=== PATIENT | male | born 1950 | race American Indian/Alaskan Native ===

== ENCOUNTER 2016-09-09 18:19 | Emergency (ER) | payer MEDICARE ==
[2016-09-09 20:38] VITALS: BP 136/84
--- NOTE | 2016-09-09 21:34 | XRay Report ---
FINAL REPORT PROCEDURE: XR TIBIA FIBULA 2V LT TECHNIQUE: LEFT tibia and fibula radiographs, AP and lateral views. CPT 56320 HISTORY: Struck left leg just below knee, send for report COMPARISON: No prior studies are available for comparison. FINDINGS: Fracture (s) and/or Dislocation(s): None . Joint space(s): Normal . Soft tissues: Normal . Bone mineralization: Normal . Foreign bodies: None . IMPRESSION: Normal Examination.
--- NOTE | 2016-09-09 23:48 | Emergency Department Report ---
HPI - General Chief Complaint: Extremity Injury, Lower Time Seen by Provider: 09/09/16 23:33 - HPI HPI: he was a 66-year-old male complaining of left leg pain after accidentally got hit in the leg with a hammer earlier today while he was working in yard. Patient states he was working in his yard earlier today, he was using fell of his head and hit his left anterior ledesma He denies fevers/chills/nausea/vomiting/abdominal pain or any other problems. ED Past Medical Hx - Past Medical History Previous Medical History?: Yes Hx Hypertension: Yes Hx Heart Attack/AMI: Yes Hx Diabetes: Yes Additional medical history: high cholesterol - Surgical History Past Surgical History?: Yes Hx Cholecystectomy: Yes - Social History Smoking Status: Current Every Day Smoker Substance Use Type: None - Medications Home Medications: Home Medications Medication Instructions Recorded Confirmed Last Taken Type Carvedilol [Coreg] 25 mg PO QHS 04/17/13 04/17/13 04/14/13 21:00 History Cholecalciferol (Vitamin D3) 3,000 unit PO QDAY 04/17/13 04/17/13 04/15/13 08: 00 History [Vitamin D3] Fenofibrate Nanocrystallized 145 mg PO QDAY 04/17/13 04/17/13 04/15/13 08:00 History [Tricor] Hydrochlorothiazide [HCTZ] 12.5 mg PO QDAY 04/17/13 04/17/13 04/15/13 08:00 History Losartan [Cozaar] 100 mg PO QDAY 04/17/13 04/17/13 04/15/13 09:00 History Pravastatin (Nf) [Pravachol] 40 mg PO QHS 04/17/13 04/17/13 04/14/13 21:00 History amLODIPine [Norvasc] 5 mg PO QHS 04/17/13 04/17/13 04/14/13 21:00 History cloNIDine [Catapres] 0.2 mg PO QHS 04/17/13 04/17/13 04/14/13 21:00 History methOCARBAMOL [Robaxin TAB] 500 mg PO BID #10 tab 10/06/14 Unknown Rx traMADol [Ultram 50 MG tab] 50 mg PO Q6HR PRN #20 tablet 10/06/14 Unknown Rx Aspirin [Aspirin BABY CHEW TAB] 81 mg PO QDAY #30 tab.chew 01/20/16 Unknown Rx Prasugrel [Effient] 10 mg PO QDAY #30 tablet 01/20/16 Unknown Rx Cyclobenzaprine [Flexeril 10 MG 10 mg PO BID PRN #10 tablet 09/09/16 Unknown Rx TAB] Naproxen [Naprosyn TAB] 500 mg PO BID #30 tablet 09/09/16 Unknown Rx ED Review of Systems ROS: Stated complaint: ACCIDENTLY HIT BONE BELOW KNEE W/HAMMER Other details as noted in HPI Constitutional: denies: chills, fever Eyes: denies: eye pain, eye discharge, vision change ENT: denies: ear pain, throat pain Respiratory: denies: cough, shortness of breath, wheezing Cardiovascular: denies: chest pain, palpitations Endocrine: no symptoms reported Gastrointestinal: denies: abdominal pain, nausea, diarrhea Genitourinary: denies: urgency, dysuria Musculoskeletal: denies: back pain, joint swelling, arthralgia Skin: denies: rash, lesions Neurological: denies: headache, weakness, paresthesias Psychiatric: denies: anxiety, depression Hematological/Lymphatic: denies: easy bleeding, easy bruising Physical Exam - Physical Exam Vital Signs: Vital Signs 09/09/16 20:30 Temperature 98.1 F Pulse Rate 70 Respiratory 18 Rate Blood Pressure 136/84 [Right] O2 Sat by Pulse 100 Oximetry Physical Exam: GENERAL: Alert and oriented x3, no apparent distress, Normal Gait, atraumatic. HEAD: Head is normocephalic and a-traumatic. EYES: Extra ocular muscles are intact. Pupils are equal, round, and reactive to light and accommodation. LUNGS: Symetrical with respiration, No wheezing, no rales or crackles, CTAB. HEART: S1, S2 present, regular rate and rhythm without murmur, no rubs, no gallops. EXTREMITIES/MUSCULOSKELETAL: No cyanosis, clubbing, rash, lesions or edema. Full ROM bilaterally. UE/LE Pulses 2+ bilaterally. LE and UE 5+ strength bilaterally mild tenderness to palpation of the anterior ledesma of the left leg. Mild contusion visible PSYCHIATRIC: Mood is congruent with affect, denies suicidal or homicidal ideations. SKIN: Warm and dry, No lesions, No ulceration or induration present. ED Course Vital Signs 09/09/16 20:30 Temperature 98.1 F Pulse Rate 70 Respiratory 18 Rate Blood Pressure 136/84 [Right] O2 Sat by Pulse 100 Oximetry ED Medical Decision Making - Medical Decision Making 66-year-old male presents with leg contusion ED course: Tibia-fibula x-ray ordered. X-ray shows no fracture or dislocation Discussed findings with patient. Discussed the patient to follow up with primary care physician and take medication as prescribed Vital signs are normal patient is in no acute or respiratory distress. Critical care attestation.: If time is entered above; I have spent that time in minutes in the direct care of this critically ill patient, excluding procedure time. ED Disposition Clinical Impression: Contusion of leg, left Qualifiers: Encounter type: initial encounter Qualified Code(s): S80.12XA - Contusion of left lower leg, initial encounter Disposition: DISCHARGED TO HOME OR SELFCARE Is pt being admited?: No Does the pt Need Aspirin: No Condition: Stable Instructions: Contusion in Adults (ED) Prescriptions: Cyclobenzaprine [Flexeril 10 MG TAB] 10 mg PO BID PRN #10 tablet PRN Reason: Muscle Spasm Naproxen [Naprosyn TAB] 500 mg PO BID #30 tablet Referrals: PRIMARY CARE, [Primary Care Provider] - 3-5 Days Forms: Work/School Release Form Time of Disposition: 23:54
== END 2016-09-10 00:12 | disposition home or self-care (01) ==
LOC: ED 18:19
DX: S80.12XA Contusion of left lower leg, initial encounter (principal); I10 Essential (primary) hypertension; I25.2 Old myocardial infarction; E11.9 Type 2 diabetes mellitus without complications; E78.00 Pure hypercholesterolemia, unspecified; F17.200 Nicotine dependence, unspecified, uncomplicated; Z79.82 Long term (current) use of aspirin; W22.8XXA Striking against or struck by other objects, initial encounter; Y93.89 Activity, other specified; Y99.8 Other external cause status; Y92.096 Garden or yard of other non-institutional residence as the place of occurrence of the external cause
CPT/HCPCS: 99283

== ENCOUNTER 2017-05-12 23:55 | Inpatient (IN) | payer MEDICARE ==
[2017-05-13] MEDS ORDERED: BENADRYL IV ONE ×2 (00:13→01:46)
[2017-05-13] MEDS ORDERED: PEPCID IV ONE (00:14)
--- NOTE | 2017-05-13 00:18 | Emergency Department Report ---
ED Allergic Reaction HPI - General Stated complaint: ALLERGIC REACTION Time Seen by Provider: 05/13/17 00:09 - History of Present Illness Initial Comments: Patient is on arB dizziness or allergies was getting in the something not sure if it was after shave presents with urticaria and angioedema to the face and the lips MD Complaint: allergic reaction, hives, facial swelling -: Gradual Symptoms: rash, facial swelling, lip swelling. denies: difficulty swallowing, difficulty breathing, nausea, vomiting, abdominal pain Severity: mild, moderate Treatment Prior to Arrival: none Previous Allergy History: angioedema - Related Data Home Medications Medication Instructions Recorded Confirmed Last Taken Carvedilol [Coreg] 25 mg PO QHS 04/17/13 04/17/13 04/14/13 21:00 Cholecalciferol (Vitamin D3) 3,000 unit PO QDAY 04/17/13 04/17/13 04/15/13 08:00 [Vitamin D3 3,000 unit] Fenofibrate Nanocrystallized 145 mg PO QDAY 04/17/13 04/17/13 04/15/13 08:00 [Tricor] Hydrochlorothiazide [HCTZ] 12.5 mg PO QDAY 04/17/13 04/17/13 04/15/13 08:00 Losartan [Cozaar] 100 mg PO QDAY 04/17/13 04/17/13 04/15/13 09:00 Pravastatin [Pravachol] 40 mg PO QHS 04/17/13 04/17/13 04/14/13 21:00 amLODIPine [Norvasc] 5 mg PO QHS 04/17/13 04/17/13 04/14/13 21:00 cloNIDine [Catapres] 0.2 mg PO QHS 04/17/13 04/17/13 04/14/13 21:00 Previous Rx's Medication Instructions Recorded Last Taken Type methOCARBAMOL [Robaxin TAB] 500 mg PO BID #10 tab 10/06/14 Unknown Rx traMADol [Ultram 50 MG tab] 50 mg PO Q6HR PRN #20 tablet 10/06/14 Unknown Rx Aspirin [Aspirin BABY CHEW TAB] 81 mg PO QDAY #30 tab.chew 01/20/16 Unknown Rx Prasugrel [Effient] 10 mg PO QDAY #30 tablet 01/20/16 Unknown Rx Cyclobenzaprine [Flexeril 10 MG 10 mg PO BID PRN #10 tablet 09/09/16 Unknown Rx TAB] Naproxen [Naprosyn TAB] 500 mg PO BID #30 tablet 09/09/16 Unknown Rx Allergies Allergy/AdvReac Type Severity Reaction Status Date / Time peanut Allergy Hives Verified 04/17/13 10:58 tomato [Tomato] Allergy Hives Verified 04/17/13 10:58 iv contrast dye Allergy Swelling Uncoded 01/16/16 09:36 ED Review of Systems ROS: Stated complaint: ALLERGIC REACTION Other details as noted in HPI Comment: All other systems reviewed and negative Constitutional: denies: diaphoresis, fever, malaise, weakness ENT: denies: dental pain, hearing loss, epistaxis, congestion Respiratory: denies: shortness of breath, SOB with exertion, wheezing Cardiovascular: denies: chest pain, palpitations, dyspnea on exertion, orthopnea , edema, syncope, paroxysmal nocturnal dyspnea Gastrointestinal: denies: nausea, vomiting, diarrhea, constipation, hematemesis , hematochezia Skin: pruritus Neurological: denies: numbness, paresthesias, confusion, abnormal gait, vertigo ED Past Medical Hx - Past Medical History Hx Hypertension: Yes Hx Heart Attack/AMI: Yes Hx Diabetes: Yes Additional medical history: high cholesterol - Surgical History Hx Cholecystectomy: Yes - Social History Smoking Status: Current Every Day Smoker Substance Use Type: None - Medications Home Medications: Home Medications Medication Instructions Recorded Confirmed Last Taken Type Carvedilol [Coreg] 25 mg PO QHS 04/17/13 04/17/13 04/14/13 21:00 History Cholecalciferol (Vitamin D3) 3,000 unit PO QDAY 04/17/13 04/17/13 04/15/13 08: 00 History [Vitamin D3 3,000 unit] Fenofibrate Nanocrystallized 145 mg PO QDAY 04/17/13 04/17/13 04/15/13 08:00 History [Tricor] Hydrochlorothiazide [HCTZ] 12.5 mg PO QDAY 04/17/13 04/17/13 04/15/13 08:00 History Losartan [Cozaar] 100 mg PO QDAY 04/17/13 04/17/13 04/15/13 09:00 History Pravastatin [Pravachol] 40 mg PO QHS 04/17/13 04/17/13 04/14/13 21:00 History amLODIPine [Norvasc] 5 mg PO QHS 04/17/13 04/17/13 04/14/13 21:00 History cloNIDine [Catapres] 0.2 mg PO QHS 04/17/13 04/17/13 04/14/13 21:00 History methOCARBAMOL [Robaxin TAB] 500 mg PO BID #10 tab 10/06/14 Unknown Rx traMADol [Ultram 50 MG tab] 50 mg PO Q6HR PRN #20 tablet 10/06/14 Unknown Rx Aspirin [Aspirin BABY CHEW TAB] 81 mg PO QDAY #30 tab.chew 01/20/16 Unknown Rx Prasugrel [Effient] 10 mg PO QDAY #30 tablet 01/20/16 Unknown Rx Cyclobenzaprine [Flexeril 10 MG 10 mg PO BID PRN #10 tablet 09/09/16 Unknown Rx TAB] Naproxen [Naprosyn TAB] 500 mg PO BID #30 tablet 09/09/16 Unknown Rx ED Physical Exam - General General appearance: alert, anxious - Head Head exam: Absent: atraumatic, normocephalic - Eye Eye exam: Present: PERRL, EOMI - ENT ENT exam: Present: other (angioedema to the lips) - Neck Neck exam: Present: normal inspection. Absent: tenderness, meningismus, lymphadenopathy - Respiratory Respiratory exam: Present: rhonchi. Absent: respiratory distress, wheezes, rales, stridor, accessory muscle use, decreased breath sounds, prolonged expiratory - Cardiovascular Cardiovascular Exam: Present: regular rate, normal rhythm - GI/Abdominal GI/Abdominal exam: Present: soft. Absent: distended, tenderness, guarding, rebound, mass, bruit, pulsatile mass - Extremities Exam Extremities exam: Present: normal capillary refill. Absent: tenderness, pedal edema, joint swelling, calf tenderness - Back Exam Back exam: Present: normal inspection, rash noted. Absent: CVA tenderness (L), muscle spasm, paraspinal tenderness, vertebral tenderness - Neurological Exam Neurological exam: Present: alert, oriented X3, CN II-XII intact. Absent: motor sensory deficit - Skin Skin exam: Present: urticaria ED Course Vital Signs 05/13/17 00:32 Temperature 100.5 F H Pulse Rate 96 H Blood Pressure 146/81 O2 Sat by Pulse 96 Oximetry - Reevaluation(s) Reevaluation #1: 01/12/18 02:13 Patient was given IV fluids antihistamines and steroids had no stridor or drooling no signs of airway problems except lip angioedema ED Medical Decision Making - Lab Data Result diagrams: 05/13/17 00:35 05/13/17 00:35 - Medical Decision Making Patient will need admission given the fact that he is on ARB with angioedema with persistent symptoms of itch as well as rash tongue tightness with lip swelling and facial swelling case d/w dr messina weed control inspector for [facility] for admit Critical care attestation.: If time is entered above; I have spent that time in minutes in the direct care of this critically ill patient, excluding procedure time. ED Disposition Clinical Impression: Angioedema, Allergic reaction Disposition: OP ADMIT IP TO THIS HOSP Is pt being admited?: Yes Condition: Stable Referrals: JONE WEBER MD [Primary Care Provider] - 3-5 Days Time of Disposition: 02:15
[2017-05-13] MEDS ORDERED: NACL 0.9% 500 ML 500 ML IV ONE (00:19)
[2017-05-13] MEDS ORDERED: NACL 0.9% 1000 ML 1,000 ML ONE (00:58)
--- NOTE | 2017-05-13 01:17 | XRay Report ---
FINAL REPORT EXAM: XR CHEST 1V AP HISTORY: Allergic Reaction COMPARISON: None available. FINDINGS: Frontal view(s) of the chest obtained. Cardiac silhouette within normal limits. No gross consolidation or effusion. No pneumothorax. IMPRESSION: No grossly acute findings.
[2017-05-13 01:18] LABS: Basophils % (Auto) 0.2 % (0.0-1.8); Eosinophils % (Auto) 0.1 % (0.0-4.3); Hematocrit 44.5 % (35.5-45.6); Hemoglobin 15.1 gm/dl (11.8-15.2); Lymphocytes # (Auto) 1.3 K/mm3 (1.2-5.4); Lymphocytes % (Auto) 12.8 % (13.4-35.0); Mean Corpuscular HGB Conc 34 % (32-34); Mean Corpuscular Hemoglobin 29 pg (28-32); Mean Corpuscular Volume 85 fl (84-94); Monocytes # (Auto) 0.5 K/mm3 (0.0-0.8); Monocytes % (Auto) 5.2 % (0.0-7.3); Platelet Count 133 K/mm3 (140-440); Red Blood Count 5.26 M/mm3 (3.65-5.03); Red Cell Distribution Width 16.5 % (13.2-15.2)
[2017-05-13 01:34] LABS: Alanine Aminotransferase 15 units/L (7-56); Albumin 3.3 g/dL (3.9-5); BUN/Creatinine Ratio 9; Blood Urea Nitrogen 11 mg/dL (9-20); Calcium 8.7 mg/dL (8.4-10.2); Hemolysis Index 6
[2017-05-13] MEDS ORDERED: TYLENOL PO PRN (03:14)
[2017-05-13] MEDS ORDERED: MILK OF MAGNESIA PO PRN (03:14)
[2017-05-13] MEDS ORDERED: ZOFRAN IV PRN (03:14)
[2017-05-13] MEDS ORDERED: DULCOLAX PR PRN (03:14)
[2017-05-13] MEDS ORDERED: BENADRYL IV SCH (04:00)
--- NOTE | 2017-05-13 04:15 | History and Physical Report ---
History of Present Illness Date of examination: 05/13/17 Date of admission: 05/13/17 03:14 History of present illness: 70-year-old man with a history of hypertension, coronary artery disease, hyperlipidemia, diabetes continue emergency room with complaints of swelling of his eyes. Patient stated he applied a shaving lotion to his face and was getting ready to shave, he broke out in hives and his eyes became swollen shut. He could not see coming to the emergency room for evaluation. Patient was given steroids, Benadryl, eyes are beginning to open Review Of Systems: Constitutional: no weight loss Ears, eyes, nose, mouth and throat: no nasal congestion, no nasal discharge, no sinus pressure, blurry vision, diplopia Neck: No neck pain or rigidity. Cardiovascular: No chest pain, palpitations Respiratory: No shortness of breath, cough Gastrointestinal: No abdominal pain, hematochezia Genitourinary : no dysuria, frequency , hematuria Musculoskeletal: no muscle ache Integumentary: no rash, no pruritis Neurological: no parathesias, focal weakness Endocrine: no cold or heat intolerance, no polyuria or polydipsia Hematologic/Lymphatic: no easy bruising, no easy bleeding, no gland swelling Allergic/Immunologic: no urticaria, no angioedema. PAST MEDICAL HISTORY:hypertension, coronary artery disease, hyperlipidemia, diabetes PAST SURGICAL HISTORY: None FAMILY HISTORY: Hypertension SOCIAL HISTORY: Denies tobacco, alcohol, drug Medications and Allergies Allergies Allergy/AdvReac Type Severity Reaction Status Date / Time peanut Allergy Hives Verified 04/17/13 10:58 tomato [Tomato] Allergy Hives Verified 04/17/13 10:58 iv contrast dye Allergy Swelling Uncoded 01/16/16 09:36 Home Medications Medication Instructions Recorded Confirmed Last Taken Type Carvedilol [Coreg] 25 mg PO QHS 04/17/13 04/17/13 04/14/13 21:00 History Cholecalciferol (Vitamin D3) 3,000 unit PO QDAY 04/17/13 04/17/13 04/15/13 08: 00 History [Vitamin D3 3,000 unit] Fenofibrate Nanocrystallized 145 mg PO QDAY 04/17/13 04/17/13 04/15/13 08:00 History [Tricor] Hydrochlorothiazide [HCTZ] 12.5 mg PO QDAY 04/17/13 04/17/1313 08:00 History Losartan [Cozaar] 100 mg PO QDAY 04/17/13 04/17/13 04/15/13 09:00 History Pravastatin [Pravachol] 40 mg PO QHS 04/17/13 04/17/13 04/14/13 21:00 History amLODIPine [Norvasc] 5 mg PO QHS 04/17/13 04/17/13 04/14/13 21:00 History cloNIDine [Catapres] 0.2 mg PO QHS 04/17/13 04/17/13 04/14/13 21:00 History methOCARBAMOL [Robaxin TAB] 500 mg PO BID #10 tab 10/06/14 Unknown Rx traMADol [Ultram 50 MG tab] 50 mg PO Q6HR PRN #20 tablet 10/06/14 Unknown Rx Aspirin [Aspirin BABY CHEW TAB] 81 mg PO QDAY #30 tab.chew 01/20/16 Unknown Rx Prasugrel [Effient] 10 mg PO QDAY #30 tablet 01/20/16 Unknown Rx Cyclobenzaprine [Flexeril 10 MG 10 mg PO BID PRN #10 tablet 09/09/16 Unknown Rx TAB] Naproxen [Naprosyn TAB] 500 mg PO BID #30 tablet 09/09/16 Unknown Rx Active Meds: Active Medications Acetaminophen (Tylenol) 650 mg PO Q4H PRN PRN Reason: Pain MILD(1-3)/Fever >100.5/[place] Bisacodyl (Dulcolax) 10 mg ID QDAY PRN PRN Reason: Constipation unrelieved by MOM Diphenhydramine HCl (Benadryl) 25 mg IV Q6H GABRIELLE Enoxaparin Sodium (Lovenox) 40 mg SUB-Q QDAY GABRIELLE Levofloxacin/Dextrose (Levaquin 500mg/100ml) 500 mg in 100 mls @ 100 mls/hr IV Q24HR GABRIELLE PRN Reason: Protocol Magnesium Hydroxide (Milk Of Magnesia) 30 ml PO Q4H PRN PRN Reason: Constipation Methylprednisolone Sodium Succinate (Solu-Medrol) 125 mg IV Q6H GABRIELLE Ondansetron HCl (Zofran) 4 mg IV Q8H PRN PRN Reason: N/V unrelieved by Reglan Exam - Physical Exam Narrative exam: Gen. appearance: Patient lying in bed in no acute distress HEENT: Normocephalic/atraumatic, eye lids swollen, pupils equal round reactive to light, extra occular movement intact, no scleral icterus, no JVD or thyromegaly or nodule, neck is supple, mucous membrane moist, no erythema or exudate Heart: S1-S2, regular rate and rhythm Lungs: Clear to auscultation bilateral breathing comfortable Abdomen: Positive bowel sounds, nontender, nondistended, no organomegaly Extremities: No edema, cyanosis, clubbing Neuro:: Oriented 3 , cranial nerves II-12 intact, speech, motor intact Skin: No rash, nodules, warm dry - Constitutional Vitals: Temp Pulse Resp BP Pulse Ox 100.5 F H 96 H 20 146/81 98 05/13/17 00:32 05/13/17 00:32 05/13/17 03:12 05/13/17 00:32 05/13/17 03:12 Results - Labs CBC & Chem 7: 05/13/17 00:35 05/13/17 00:35 Labs: Abnormal lab results 05/13/17 05/13/17 Range/Units 00:35 00:35 RBC 5.26 H (3.65-5.03) M/mm3 RDW 16.5 H (13.2-15.2) % Plt Count 133 L (140-440) K/mm3 Lymph % (Auto) 12.8 L (13.4-35.0) % Seg Neutrophils % 81.7 H (40.0-70.0) % Seg Neutrophils # 8.0 H (1.8-7.7) K/mm3 Potassium 3.4 L (3.6-5.0) mmol/L Glucose 178 H (75-100) mg/dL Albumin 3.3 L (3.9-5) g/dL - Imaging and Cardiology Chest x-ray: report reviewed Assessment and Plan Assessment Acute allergic reaction secondary to shaving lotion Hypertension Diabetes Coronary artery disease Thrombocytopenia Plan Admit to medicine Start high-dose IV steroids, Benadryl, Pepcid Continue her present outpatient medications DVT prophylaxis
[2017-05-13] MEDS ORDERED: D50W (25GM) Syringe IV PRN (04:18)
[2017-05-13] MEDS ORDERED: LEVAQUIN 500MG/100ML 500 MG/100 ML BAG IV ONE (04:53)
[2017-05-13] MEDS ORDERED: BENADRYL ONE (04:54)
[2017-05-13] MEDS: LEVAQUIN 500MG/100ML 500 MG/100 ML BAG IV SCH ×2 (05:09→09:53)
[2017-05-13 05:32] LABS: Bilirubin,Urine NEG (Negative); Blood,Urine MOD (Negative); Color,Urine Yellow (Yellow); Mucus,Urine FEW /HPF; Nitrite,Urine NEG (Negative); Protein,Urine <15 mg/dL mg/dL (Negative); Urobilinogen,Urine < 2.0 mg/dL (<2.0)
[2017-05-13] MEDS: NOVOLOG SUB-Q SCH ×4 (09:51→23:26)
[2017-05-13] MEDS ORDERED: LOVENOX SUB-Q SCH (10:00)
[2017-05-13] MEDS: HCTZ PO SCH (10:06)
[2017-05-13] MEDS: PEPCID IV SCH ×2 (10:06→23:26)
[2017-05-13] MEDS: TRICOR PO SCH (10:06)
[2017-05-13] MEDS: BABY ASPIRIN PO SCH (10:06)
[2017-05-13] MEDS: VITAMIN D3 PO SCH (10:06)
[2017-05-13] MEDS: BENADRYL IV SCH ×3 (12:51→23:26)
--- NOTE | 2017-05-13 14:39 | Progress Note ---
Assessment and Plan Assessment and plan: 70-year-old man with a history of hypertension, coronary artery disease, hyperlipidemia, diabetes continue emergency room with complaints of swelling of his eyes. Patient stated he applied a shaving lotion to his face and was getting ready to shave, he broke out in hives and his eyes became swollen shut. He could not see coming to the emergency room for evaluation. Patient was given steroids, Benadryl, eyes are beginning to open Acute allergic reaction secondary to shaving lotion Hypertension Diabetes Coronary artery disease Thrombocytopenia Plan Admit to medicine Start high-dose IV steroids, Benadryl, Pepcid Continue her present outpatient medications DVT prophylaxis Hospitalist Physical - Constitutional Vitals: Temp Pulse Resp BP Pulse Ox 98.7 F 66 19 137/64 92 05/13/17 07:21 05/13/17 07:21 05/13/17 07:21 05/13/17 07:21 05/13/17 07:21 Results - Labs CBC & Chem 7: 05/13/17 00:35 05/13/17 00:35 Labs: Laboratory Last Values WBC 9.8 K/mm3 (4.5-11.0) 05/13/17 00:35 RBC 5.26 M/mm3 (3.65-5.03) H 05/13/17 00:35 Hgb 15.1 gm/dl (11.8-15.2) 05/13/17 00:35 Hct 44.5 % (35.5-45.6) 05/13/17 00:35 MCV 85 fl (84-94) 05/13/17 00:35 MCH 29 pg (28-32) 05/13/17 00:35 MCHC 34 % (32-34) 05/13/17 00:35 RDW 16.5 % (13.2-15.2) H 05/13/17 00:35 Plt Count 133 K/mm3 (140-440) L 05/13/17 00:35 Lymph % (Auto) 12.8 % (13.4-35.0) L 05/13/17 00:35 [place] % (Auto) 5.2 % (0.0-7.3) 05/13/17 00:35 Eos % (Auto) 0.1 % (0.0-4.3) 05/13/17 00:35 Baso % (Auto) 0.2 % (0.0-1.8) 05/13/17 00:35 Lymph # 1.3 K/mm3 (1.2-5.4) 05/13/17 00:35 [place] # 0.5 K/mm3 (0.0-0.8) 05/13/17 00:35 Eos # 0.0 K/mm3 (0.0-0.4) 05/13/17 00:35 Baso # 0.0 K/mm3 (0.0-0.1) 05/13/17 00:35 Seg Neutrophils % 81.7 % (40.0-70.0) H 05/13/17 00:35 Seg Neutrophils # 8.0 K/mm3 (1.8-7.7) H 05/13/17 00:35 Sodium 138 mmol/L (137-145) 05/13/17 00:35 Potassium 3.4 mmol/L (3.6-5.0) L 05/13/17 00:35 Chloride 98.3 mmol/L (98-107) 05/13/17 00:35 Carbon Dioxide 22 mmol/L (22-30) 05/13/17 00:35 Anion Gap 21 mmol/L 05/13/17 00:35 BUN 11 mg/dL (9-20) 05/13/17 00:35 Creatinine 1.2 mg/dL (0.8-1.5) 05/13/17 00:35 Estimated GFR > 60 ml/min 05/13/17 00:35 BUN/Creatinine Ratio 9 % 05/13/17 00:35 Glucose 178 mg/dL (75-100) H 05/13/17 00:35 POC Glucose 295 (70-105) H 05/13/17 11:31 Calcium 8.7 mg/dL (8.4-10.2) 05/13/17 00:35 Total Bilirubin 0.60 mg/dL (0.1-1.2) 05/13/17 00:35 AST 18 units/L (5-40) 05/13/17 00:35 ALT 15 units/L (7-56) 05/13/17 00:35 Alkaline Phosphatase 48 units/L (35-129) 05/13/17 00:35 Total Protein 6.5 g/dL (6.3-8.2) 05/13/17 00:35 Albumin 3.3 g/dL (3.9-5) L 05/13/17 00:35 Albumin/Globulin Ratio 1.0 % 05/13/17 00:35 Urine Color Yellow (Yellow) 05/13/17 05:13 Urine Turbidity Clear (Clear) 05/13/17 05:13 Urine pH 5.0 (5.0-7.0) 05/13/17 05:13 Ur Specific [place] 1.010 (1.003-1.030) 05/13/17 05:13 Urine Protein <15 mg/dl mg/dL (Negative) 05/13/17 05:13 Urine Glucose (UA) Neg mg/dL (Negative) 05/13/17 05:13 Urine Ketones Neg mg/dL (Negative) 05/13/17 05:13 Urine Blood Mod (Negative) 05/13/17 05:13 Urine Nitrite Neg (Negative) 05/13/17 05:13 Urine Bilirubin Neg (Negative) 05/13/17 05:13 Urine Urobilinogen < 2.0 mg/dL (<2.0) 05/13/17 05:13 Ur Leukocyte Esterase Tr (Negative) 05/13/17 05:13 Urine WBC (Auto) 2.0 /HPF (0.0-6.0) 05/13/17 05:13 Urine RBC (Auto) 1.0 /HPF (0.0-6.0) 05/13/17 05:13 Urine Mucus Few /HPF 05/13/17 05:13
[2017-05-13] MEDS: EFFIENT PO SCH (15:58)
[2017-05-13] MEDS ORDERED: CATAPRES PO SCH (22:00)
[2017-05-13] MEDS ORDERED: NORVASC PO SCH (22:00)
[2017-05-13] MEDS ORDERED: COREG PO SCH (22:00)
[2017-05-13] MEDS ORDERED: PRAVACHOL PO SCH (22:00)
[2017-05-14] MEDS: BENADRYL IV SCH ×2 (06:46→13:06)
[2017-05-14 07:25] LABS: Basophils % (Auto) 0.1 % (0.0-1.8); Hematocrit 43.3 % (35.5-45.6); Hemoglobin 14.5 gm/dl (11.8-15.2); Lymphocytes # (Auto) 1.1 K/mm3 (1.2-5.4); Lymphocytes % (Auto) 6.8 % (13.4-35.0); Mean Corpuscular HGB Conc 34 % (32-34); Mean Corpuscular Hemoglobin 29 pg (28-32); Mean Corpuscular Volume 85 fl (84-94); Monocytes # (Auto) 0.5 K/mm3 (0.0-0.8); Monocytes % (Auto) 3.1 % (0.0-7.3); Platelet Count 125 K/mm3 (140-440); Red Blood Count 5.07 M/mm3 (3.65-5.03); Red Cell Distribution Width 16.4 % (13.2-15.2)
[2017-05-14] MEDS: NOVOLOG SUB-Q SCH ×2 (07:30→13:06)
[2017-05-14 07:33] LABS: BUN/Creatinine Ratio 17; Blood Urea Nitrogen 19 mg/dL (9-20); Calcium 9.1 mg/dL (8.4-10.2); Hemolysis Index 4
[2017-05-14 09:54] VITALS: BP 104/52
[2017-05-14] MEDS: LEVAQUIN 500MG/100ML 500 MG/100 ML BAG IV SCH (10:25)
[2017-05-14] MEDS: EFFIENT PO SCH (10:28)
[2017-05-14] MEDS: VITAMIN D3 PO SCH (10:28)
[2017-05-14] MEDS: HCTZ PO SCH (10:29)
[2017-05-14] MEDS: PEPCID IV SCH (10:29)
[2017-05-14] MEDS: BABY ASPIRIN PO SCH (10:29)
[2017-05-14] MEDS: TRICOR PO SCH (10:29)
--- NOTE | 2017-05-14 12:46 | Discharge Summary ---
Providers - Providers Date of Admission: 05/13/17 03:14 Attending physician: KARTHIKEYAN ZARCO MD Primary care physician: JONE WEBER MD Hospitalization Condition: Stable Hospital course: 70-year-old man with a history of hypertension, coronary artery disease, hyperlipidemia, diabetes continue emergency room with complaints of swelling of his eyes. Patient stated he applied a shaving lotion to his face and was getting ready to shave, he broke out in hives and his eyes became swollen shut. The patient relates having similar symptoms in the past. States that he has allergies to tomatoes peanuts and many other foods and also her contact allergies. He receives steroids, atraumatic hal, H2 hal after which he clinically improved. He was advised to go back and read the ingredients of the shaving cream and to never use it again. Discharge diagnoses Acute allergic reaction secondary to contact allergies to shaving lotion Hypertension Diabetes Coronary artery disease Thrombocytopenia Disposition: DC- TO HOME OR SELFCARE Time spent for discharge: 33 minutes Core Measure Documentation - Palliative Care Palliative Care/ Comfort Measures: Not Applicable - Core Measures Any of the following diagnoses?: none Exam - Constitutional Vitals: Temp Pulse Resp BP Pulse Ox 98.2 F 58 L 18 104/52 95 05/14/17 08:36 05/14/17 08:36 05/14/17 08:36 05/14/17 08:36 05/14/17 08:36 General appearance: Present: no acute distress, well-nourished - EENT Eyes: Present: PERRL ENT: hearing intact, clear oral mucosa - Neck Neck: Present: supple, normal ROM - Respiratory Respiratory effort: normal Respiratory: bilateral: CTA - Cardiovascular Heart Sounds: Present: S1 & S2. Absent: rub, click - Extremities Extremities: pulses symmetrical, No edema Peripheral Pulses: within normal limits - Abdominal General gastrointestinal: Present: soft, non-tender, non-distended, normal bowel sounds Male genitourinary: Present: normal - Integumentary Integumentary: Present: clear, warm, dry - Musculoskeletal Musculoskeletal: gait normal, strength equal bilaterally - Psychiatric Psychiatric: appropriate mood/affect, intact judgment & insight - Neurologic Neurologic: CNII-XII intact, moves all extremities Plan Follow up with: JONE WEBER MD [Primary Care Provider] - 3-5 Days Prescriptions: amLODIPine [Norvasc] 5 mg PO QHS #30 tablet Carvedilol [Coreg] 25 mg PO QHS #30 tablet cloNIDine [Catapres] 0.2 mg PO QHS #30 tablet Pravastatin [Pravachol] 40 mg PO QHS #30 tablet Aspirin [Aspirin BABY CHEW TAB] 81 mg PO QDAY #30 tab.chew Cholecalciferol (Vitamin D3) [Vitamin D3 3,000 unit] 3,000 unit PO QDAY #30 tablet EPINEPHrine [Auvi-Q] 0.15 mg IJ PRN #1 auto.injct Fenofibrate Nanocrystallized [Tricor] 145 mg PO QDAY #30 tablet Hydrochlorothiazide [HCTZ] 12.5 mg PO QDAY #30 capsule Losartan [Cozaar] 100 mg PO QDAY #60 tablet Prasugrel [Effient] 10 mg PO QDAY #30 tablet Prednisone 50 mg PO DAILY PRN #15 tablet PRN Reason: allergies traMADol [Ultram 50 MG tab] 50 mg PO Q6HR PRN #14 tablet PRN Reason: Pain
== END 2017-05-14 13:32 | disposition home or self-care (01) | DRG 125 ==
LOC: ED 23:55 → 3A 05-13 03:14
PROVIDERS: ADMIT Internal Medicine; ATTEND Internal Medicine
DX: H02.843 Edema of right eye, unspecified eyelid (principal); H02.845 Edema of left lower eyelid; I10 Essential (primary) hypertension; E11.8 Type 2 diabetes mellitus with unspecified complications; I25.10 Atherosclerotic heart disease of native coronary artery without angina pectoris; D69.6 Thrombocytopenia, unspecified; F17.200 Nicotine dependence, unspecified, uncomplicated; T78.3XXA Angioneurotic edema, initial encounter; T50.8X5A Adverse effect of diagnostic agents, initial encounter; E78.00 Pure hypercholesterolemia, unspecified; Z79.82 Long term (current) use of aspirin; Z79.899 Other long term (current) drug therapy; Z91.041 Radiographic dye allergy status; Z91.010 Allergy to peanuts; Z91.018 Allergy to other foods; Z90.49 Acquired absence of other specified parts of digestive tract; Y92.89 Other specified places as the place of occurrence of the external cause
CPT/HCPCS: 36415; 71045; 80048; 80053; 81001; 82962; 85025; 87040; A9270-GY; J1200; J1815; J1956; J2930; J7030